=== PATIENT | male | born 1995 | race Caucasian/White ===

== ENCOUNTER 2016-10-01 14:35 | Emergency (ER) | payer MEDICAID, OTHER ==
[2016-10-01 15:00] VITALS: BP 123/70
[2016-10-01] MEDS ORDERED: Diphtheria,Pertussis(Acell),Tetanus Vaccine 0.5 ML SDV inactive IM ONE (15:01)
[2016-10-01] MEDS ORDERED: Lidocaine 1% 50 ML MDV INJECT ONE (15:44)
[2016-10-01] MEDS ORDERED: Acetaminophen/HYDROcodone 325-5 MG Tab PO ONE (15:50)
[2016-10-01] MEDS ORDERED: Levofloxacin 250 MG Tab PO ONE (15:50)
--- NOTE | 2016-10-01 17:24 | EDM.PDOC ---
ED HPI GENERAL MEDICAL PROBLEM - General Chief Complaint: Laceration Stated Complaint: LEFT RING FINGER LACERATION Time Seen by Provider: 10/01/16 14:47 Source of Information: Reports: Patient, RN Notes Reviewed - History of Present Illness INITIAL COMMENTS - FREE TEXT/NARRATIVE: 21-year-old male got his left distal ring finger smashed between a couple of push carts working at [employer]. He just started his shift a short time prior. He was gathering some of these push carts, I believe to bring back into the store. As they came together his left distal ring finger got pinched with quite severe resulting laceration, partial avulsion injury. No other pain or injury from this incident. He does not recall his last tetanus immunization. Treatments TREE TRIMMER: Reports: Dressing(s) Left 4-Ring finger Pain Score (Numeric/FACES): 6 - Related Data Allergies Allergy/AdvReac Type Severity Reaction Status Date / Time amoxicillin [From Augmentin] Allergy Rash Verified 10/01/16 15:01 cefuroxime [From Ceftin] Allergy Rash Verified 10/01/16 15:01 clavulanic acid Allergy Rash Verified 10/01/16 15:01 [From Augmentin] Home Meds: Home Meds Levofloxacin [Levaquin] 500 mg PO Q24H #7 tablet 10/01/16 [Rx] Past Medical History - Past Surgical History HEENT Surgical History: Reports: Adenoidectomy, Myringotomy w Tube(s), Tonsillectomy, Other (See Below) Musculoskeletal Surgical History: Reports: Other (See Below) Social & Family History - Family History Family Medical History: Noncontributory - Tobacco Use Smoking Status *Q: Never Smoker Second Hand Smoke Exposure: No - Caffeine Use Caffeine Use: Reports: Coffee - Recreational Drug Use Recreational Drug Use: No ED ROS GENERAL - Review of Systems Review Of Systems: See Below Constitutional: Reports: No Symptoms HEENT: Reports: No Symptoms Respiratory: Reports: No Symptoms Cardiovascular: Reports: No Symptoms GI/Abdominal: Denies: Nausea, Vomiting Musculoskeletal: Reports: Joint Pain (Distal left index finger) Skin: Reports: Other (Large laceration distal left index finger with partial avulsion distal tip of finger) Neurological: Denies: Numbness, Tingling ED EXAM, SKIN/RASH Exam: See Below General Appearance: Alert, Mild Distress Head: Atraumatic Neck: Supple Respiratory/Chest: No Respiratory Distress, Lungs Clear Cardiovascular: Regular Rate, Rhythm Extremities: Other (Large 2.5 cm circumferential laceration of the distal tip of the left ring finger, Ofc. present, continued bleeding. He does have tenderness of the distal tuft area. It is some blood under the distal nail. Proximal nailbed is intact.) Neurological: No Motor/Sensory Deficits ED SKIN PROCEDURES - Laceration/Wound Repair Left Distal Finger Lac/wound length in cm: 2.5 Appearance: irregular Distal NVT: neuro & vascular intact Anesthetic Type: digital Local anesthesia - Lidocaine (Xylocaine): 1% plain Skin prep: providone-iodine (betadine), saline Exploration/Debridement/Repair: minimal debridement Suture size: 3-0 # of sutures: 8 Suture type: nylon Course - Vital Signs Last Recorded V/S: Last Vital Signs Temp 99.1 F 10/01/16 14:55 Pulse 90 10/01/16 14:55 Resp 20 10/01/16 14:55 BP 123/70 10/01/16 14:55 Pulse Ox 99 10/01/16 14:55 - Orders/Labs/Meds Orders: Active Orders 24 hr Category Date Time Status Vaccines to be Administered [RC] PER UNIT ROUTINE Care 10/01/16 15:03 Active Fingers Fourth Digit Lt F3 [CR] Stat Exams 10/01/16 15:02 Taken Meds: Medications Discontinued Medications Generic Name Dose Route Start Last Admin Trade Name Oscar PRN Reason Stop Dose Admin Hydrocodone Bitart/Acetaminophen 1 tab 10/01/16 15:50 10/01/16 15:59 [place] 325-5 Mg PO 10/01/16 15:51 1 tab ONETIME ONE Administration Diphtheria/Tetanus/Acell Pertussis 0.5 ml 10/01/16 15:01 10/01/16 15:49 Boostrix IM 10/01/16 15:02 0.5 ml .ONCE ONE Administration Levofloxacin 500 mg 10/01/16 15:50 10/01/16 15:57 Levaquin PO 10/01/16 15:51 500 mg ONETIME ONE Administration Lidocaine HCl 50 ml 10/01/16 15:44 10/01/16 16:00 Xylocaine 1% INJECT 10/01/16 15:45 50 ml ONETIME ONE Administration - Re-Assessments/Exams Free Text/Narrative Re-Assessment/Exam: 10/01/16 17:00. X-ray of the finger does show a distal tuft fracture with some displacement. Digital block was done for anesthesia. He did have partial evulsion of the distal pad with displacement distally. With suturing I was able to bring that back into good position and wound approximation which also will help bring the fracture fragment back into better position. Patient tolerated this well. He unfortunately allergies to amoxicillin and cephalosporins. Doxycycline was a consideration for an antibiotic but with so much sunlight this time of the year I went with Levaquin. He had one dose here in the ED and we will continue him on that for the next week. Tube gauze dressing will be applied. I have informed him he should followup at the clinic Monday, 2 days from now for dressing change, wound recheck. Departure - Departure Time of Disposition: 17:27 Disposition: Home, Self-Care 01 Condition: fair Clinical Impression: Finger laceration Qualifiers: Encounter type: initial encounter Qualified Code(s): S61.219A - Laceration without foreign body of unspecified finger without damage to nail, initial encounter Finger fracture Qualifiers: Encounter type: initial encounter Finger: ring finger Fracture type: open Phalanx: distal Fracture alignment: displaced Laterality: left Qualified Code(s) : S62.635B - Displaced fracture of distal phalanx of left ring finger, initial encounter for open fracture - Discharge Information Prescriptions: Levofloxacin [Levaquin] 500 mg PO Q24H #7 tablet Instructions: Finger Fracture, [id number], Laceration Care, Adult, Easy-to- Read Referrals: Coleman Jimenez MD [Primary Care Provider] - Forms: ED Department Discharge - My Orders Last 24 Hours: My Active Orders 10/01/16 15:02 Fingers Fourth Digit Lt F3 [CR] Stat 10/01/16 15:03 Vaccines to be Administered [RC] PER UNIT ROUTINE - Assessment/Plan Last 24 Hours: My Active Orders 10/01/16 15:02 Fingers Fourth Digit Lt F3 [CR] Stat 10/01/16 15:03 Vaccines to be Administered [RC] PER UNIT ROUTINE
--- NOTE | 2016-10-02 10:34 | CR ---
Left fourth finger: Four views of the left fourth finger were obtained. Fracture seen within the distal tuft. Soft tissue injury is seen. No proximal abnormality identified. Impression: 1. Mildly displaced tuft fracture within the distal fourth finger. 2. Soft tissue injury. Diagnostic code #3
== END 2016-10-01 18:08 | disposition home or self-care (01) ==
LOC: JD.ED 14:35
DX: S62.635B Displaced fracture of distal phalanx of left ring finger, initial encounter for open fracture (principal); S61.211A Laceration without foreign body of left index finger without damage to nail, initial encounter; Z88.1 Allergy status to other antibiotic agents; Z90.89 Acquired absence of other organs; Z98.890 Other specified postprocedural states; Z96.22 Myringotomy tube(s) status; Z88.8 Allergy status to other drugs, medicaments and biological substances; W23.0XXA Caught, crushed, jammed, or pinched between moving objects, initial encounter
CPT/HCPCS: 12001; 73140; 90471; 99283; A9270; 90715